=== PATIENT | male | born 1945 | race Caucasian/White ===

== ENCOUNTER 2016-07-23 07:59 | Day surgery (SDC) | payer OTHER ==
[~2016-07-23] VITALS: Ht 190.5 cm; Wt 100.0 kg
[~2016-07-23 07:59] MED LIST: 0.9% Sodium Chloride 1,000 ML IV SCH; ASPI81TA3 PO; CAND32TA2 PO; CHOL200047 PO; HYG25 PO; INSU100I; ISOS20TA4 PO; LISI40TA PO; METO25TA6 PO; NITR0.4T6 SL; OMEP20CA11 PO; PHEN100C11 PO; PSYL283P27 PO; RANI150C4 PO; SENN8.6C6 PO; SIMV10TA4 PO; Sodium Chloride LOK Flush 10 mL Syringe IV PRN; VERA100C5 PO; VITA-230 PO; VITA400C64 PO; fentaNYL-PF 50 mCg/mL 2 mL Inj IVPUSH PRN
[2016-07-23] MEDS ORDERED: Propofol 10,000 mCg/mL 20 mL Inj ONE (08:00)
[2016-07-23] MEDS ORDERED: Ketamine 10 mg/mL 20 mL Inj ONE (08:00)
[2016-07-23 08:25] VITALS: BP 133/67; PULSE 60; RESP 16; O2SAT 99
[2016-07-23] MEDS ORDERED: Lactated Ringer's 1,000 ML IV SCH (10:34)
[2016-07-23] MEDS ORDERED: MetoCLOpramide 5 mg/mL 2 mL Inj IVPUSH PRN (10:35)
[2016-07-23] MEDS ORDERED: Ondansetron 2 mg/mL 2 mL Inj IVPUSH PRN (10:35)
--- NOTE | 2016-07-23 10:42 | PCM.HPANE ---
Patient Data Surgeon Admitting Provider: Attending Provider:Gab Klein MD Primary Care Physician:Clinic,[facility] Other Provider: Reason for Visit Anemia, Dysphagia Ht/WT & BMI Height (Feet): 6 Height (Inches): 3 Weight (Kilograms): 100 Body Mass Index 27.00 Allergies Coded Allergies: Beta-Blockers (Beta-Adrenergic Bloc (Verified Allergy, Mild, 07/22/16) Past Anesthesia History Anesthesia History: Positive for:: Anesthesia Reactions (NAUSEA), Denies:: Abnormal Airway, Difficult Intubation, Fam Anesthesia Reaction, Fam Malignant Hypertherm, Malignant Hyperthermia Diabetes History Hx Diabetes?: Yes (PUMP) Current Bedside Blood Glucose: 142 MRSA MRSA: No Medications Blood Thinner: Aspirin Last Dose Blood Thinner: Jul 23, 2016 Home Meds Incl Beta Marixa: Yes Date Beta Marixa Taken: Jul 23, 2016 Time Beta Marixa Taken: 0600 Reported Medications Vitamin E Mixed (Vitamin E)400 Unit Zlpapvq354 Unit PO DAILY 30 Days 07/22/16 Vitamin A Palmitate (Vitamin A)10,000 Unit Tmbtbme46,000 Unit PO DAILY 30 Days Ref 0 07/22/16 Phenytoin Sodium Extended 100 Mg Ixapagd907 Mg PO TID 07/22/16 Candesartan Cilexetil (Atacand)32 Mg Ocdkes41 Mg PO DAILY 07/22/16 Simvastatin 10 Mg Onxwqh56 Mg PO HS Ref 0 07/22/16 Sennosides (Senna)8.6 Mg Capsule8.6 Mg PO DAILY 01/26/15 Ranitidine 150 Mg Mrfwmvj224 Mg PO DAILY Ref 0 01/26/15 Nitroglycerin SL 0.4 Mg Tab.subl0.4 Mg SL 01/26/15 Isosorbide MN 20 Mg Uzacth47 Mg PO DAILY 01/26/15 Insulin Aspart (NovoLOG U-100 Pen)100 Unit/Ml Insuln.pen 01/26/15 Metoprolol Tartrate 25 Mg Sacpdx15.5 Mg PO BID 30 Days Ref 0 01/26/15 Cholecalciferol (Vitamin D3) (Vitamin D3)2,000 Unit Capsule1,000 Unit PO 01/26/15 Aspirin Chew 81 Mg Tab.chew81 Mg PO AM #1 BOTTLE Ref 0 02/10/14 Lisinopril 40 Mg Syphlg02 Mg PO BID 30 Days Ref 0 02/10/14 Chlorthalidone 25 Mg Afmdoh00 Mg PO DAILY #30 TABLET 02/10/14 Discontinued Reported Medications Verapamil ER (Verelan PM)100 Mg Tbghhre295 Mg PO DAILY 07/22/16 Omeprazole 20 Mg Capsule.dr20 Mg PO DAILY Ref 0 07/22/16 Psyllium Husk/Aspartame (Yvonne-Mucil Powder)283 Gm Cagazt937 Gm PO DAILY 01/26/15 Atorvastatin (Lipitor)40 Mg Dhbnnf90 Mg PO DAILY Ref 0 01/26/15 History History of ENT Problems?: No HEENT History: Positive for:: Dysphagia Hearing Problem Denies:: Abnormal Airway Difficult Intubation Hx of Heart Problems?: Yes Cardiovascular History: Positive for:: Atrial Fibrillation Pacemaker Valvular Heart Disease Denies:: Cardiac Surgery Chest Pain Congestive Heart Failure Edema Heart Murmur Hypertension Irregular Heartbeat Thrombophlebitis Other History/Comments s/p bypass x 7 roughly a year ago, no new symptoms, and ROS negative, and Pacemaker for AV block Hx of Respiratory Problem?: Yes Respiratory History: Denies:: Asthma COPD Cough Hemoptysis Pneumonia Tuberculosis Hx Neurologic Problems?: No Neurological History: Denies:: CVA Hx of GI Problems?: Yes Gastrointestinal History: Positive for:: Gall Bladder Disease Gastroesphageal Reflux Liver Disease (FATTY) Denies:: Cirrhosis Diverticulitis Gastrointestinal Bleeding Heartburn Hepatitis Hiatal Hernia Rectal Bleeding Hx of Problems?: No Male Hx: Denies:: Prostate Problems Scrotal Mass Testicular Surgery Hx Musculoskeletal Problems?: No Musculoskeletal History: Positive for:: Joint Replacement Denies:: Back Injury Fibromyalgia Hx of Psycho/Social Problems?: No Psycho Social History: Denies:: Anxiety Hx Depression Hx Surgeries?: Yes (HIP,TOE, KNEE,SHOULDER,7BYPASS,PACEMAKER,GALLBLADDER) Hx Any Other Health Problems?: No Other History: Positive for:: Hospitalization (gall bladder, toe amputation) Denies:: Cancer Endocrine Disease Thyroid Disease History Blood Transfusions: Denies:: Blood Transfuse Reaction Blood Transfusions Hx Diabetes: Yes (PUMP)Bedside Blood Glucose: 142 Hx Alcohol Use: Yes (OCCAS)Hx Substance Use: No Smoking Status: Never Smoker Have You Smoked inLast 12 mo: No Stop/Bang Treated for Sleep Apnea?: Yes Do You Have a CPAP Machine?: Yes Risk Assessment Category Category 1A: Patient has history of documented sleep apnea, and HAS NOT received any narcotic, sedative or anesthesia administration during this stay. Category 1B: Patient has history of documented sleep apnea, and HAS received any narcotic , sedative or anesthesia administration during this stay Category 2: Patient has SUSPECTED Obstructive Sleep Apnea, and HAS received any narcotic , sedative or anesthesia administration during this stay. Category 3: Patient has SUSPECTED Obstructive Sleep Apnea and HAS NOT received narcotic, sedative or anesthesia administration during this stay. Category 4: Outpatient in Procedural Areas with known sleep apnea or who screen positive for High Risk via the STOP/BANG questionnaire. Additional Information YANA, non-compliant with CPAP machine Exam Exam Vital Signs Vital Signs Date Time Temp Pulse Resp B/P Pulse Ox O2 Delivery O2 Flow Rate FiO2 07/23/16 08:25 60 16 133/67 99 Room Air General Appearance: Alert, Oriented X3, Cooperative HEENT/AIRWAY: MP 2 Lungs: Clear to Auscultation Heart: Exam Unremarkable Meds/Labs/Diagnostics Bedside Blood Glucose: 142 Plan Impression Patient chart reviewed, patient interviewed and anesthestic plan with risks, benefits, and alternatives discussed, and informed consent obtained. ASA Physical Status: ASA3 Severe Disease Anesthetic Plan: TIVA Bene/Risks/Altern/Consents: Yes HP Complete Prior to Induction: Yes Liam Noguera MD Jul 23, 2016 10:42
--- NOTE | 2016-07-23 11:04 | PCM.ENDEGD ---
EGD Date of Service: Jul 23, 2016 Physician Gab Klein MD Pre Procedure Diagnosis: Anemia reflux Post Procedure Dx & Findings: Erosive gastropathy and esophageal varices Procedure Esophagogastroduodenoscopy PROCEDURE IN DETAIL: After proper sedation, Olympus video endoscope was inserted into patient's mouth and esophagus was successfully intubated. Scope introduced esophagus. Esophagus showed normal shiny whitish mucosa consistent with squamous cell component. Z line was intact at 40 cm from the incisors. However there was a hiatal hernia 2 cm. Also seems to be nonobstructive minimal Schatzki's ring. Patient had 2 columns of grade 1 varices without stigmata to midesophagus. Stomach further advanced to the stomach. Stomach showed diffuse gastropathy showing redness edema atrophy and biopsies obtained throughout the stomach. Cardia fundus body antrum pylorus were all visualized. Retroflexion was done. Stomach was easily inflated and deflatable using air. Scope further events to the distal duodenum. Duodenum revealed normal villous structures with normal appearing folds without any mass ulcer erosion. Impression Nonobstructing Schatzki's ring 2 cm hiatal hernia Grade 1 varices 2 columns Diffuse erosive gastropathy status post biopsies Recommendation Patient was here for EGD colonoscopy and workup for anemia. Patient will need to see her generation technologist at the [place]. Patient was asked to follow up with her generation technologist at the [place]. Presedation Assessment Risks and Benefits Informed consent was obtained from the patient after all risks and benefits including but not limited to drug reaction, infection, pain, bleeding, perforation, as well as alternatives were discussed. Patient monitoring Continuous pulse oximetry, cardiac monitoring, blood pressure monitoring, IV access, and oxygen at 2L per nasal cannula. Complications There were no periprocedural complications identified. Post Procedure Plan Post Procedure Recommendations 1. Restrict activities today. 2. Resume normal activities in the morning. 3. Resume medications. 4. GERD behavioral modification: - Avoid fatty, acidic, spicy, large meals - Do not lie down after meals - Do not eat or drink anything for at least 2 1/2 hours before going to bed at night - Discontinue tobacco and alcohol - Decrease or avoid caffeine - Avoid chocolate and mints - Decrease weight - Avoid aspirin and non steroidal anti-inflammatory agents (NSAID) such as Aleve, Advil, Mobic, Naproxen, Ibuprofen, etc 5. Add proton pump inhibitor. Take 30 minutes before 1st meal of the day. 6. Patient informed of normal post procedure side effects as bloating, drowsiness, blood streaking in the stool 7. If gastric biopsy reveal H.pylori, continue with appropriate treatment 8. If small bowel biopsy reveals celiac, continue with appropriate treatment 9. Please don't hesitate to call me with any questions Gab Klein MD Jul 23, 2016 11:04
--- NOTE | 2016-07-23 11:37 | PCM.ENDCOL ---
Colonoscopy Date of Service: Jul 23, 2016 Physician Gab Klein MD Pre Procedure Diagnosis: Anemia Post Procedure Dx & Findings: Polyp hemorrhoids colitis Procedure Colonoscopy PROCEDURE IN DETAIL: Prep adequate Withdrawal time 18 minutes After unremarkable rectal examination the Olympus video colonoscope was inserted patient's anal canal and was advanced to cecum. Landmarks were identified including the ileocecal valve and appendiceal orifice. Scope was withdrawn systematically. Visualized colonic mucosa showed healthy shiny mucosa with normal healthy-appearing vasculature. In the ascending colon there was a 2 mm polyp which was removed completely using cold snare. In the distal rectum, there was evidence of patchy redness and some edema consistent with inflammation biopsies obtained. In the rectum retroflexion was done which showed hemorrhoids. Anal canal was inspected carefully on the way out and hemorrhoids noted. Impression Polyp times 1 status post complete removal Distal colitis? Status post biopsies Hemorrhoids Recommendation Repeat colonoscopy in 5 years Follow up with the [place] physician and obtain referral for hepatology. Avoid All NSAIDs Presedation Assessment Risks and Benefits Informed consent was obtained from the patient after all risks and benefits including but not limited to drug reaction, infection, pain, bleeding, perforation, as well as alternatives were discussed. Patient monitoring Continuous pulse oximetry, cardiac monitoring, blood pressure monitoring, IV access, and oxygen at 2L per nasal cannula. Complications There were no periprocedural complications identified. Post Procedure Plan Post Procedure Recommendations 1. Restrict activities today. 2. Resume normal activities in the morning. 3. Resume medications. 4. Patient informed of normal post procedure side effects as bloating, drowsiness, blood streaking in the stool. 5. average risk CRCS. If colon polyps come back as: -Hyperplastic- can repeat colonoscopy in 10 years -Tubular adenoma- repeat colonoscopy in 5 years -Tubulovillous/villous adenoma- repeat colonoscopy in 3 years -If any dysplasia- return to clinic as soon as possible 6. Please don't hesitate to call me with any questions. Gab Klein MD Jul 23, 2016 11:37
[2016-07-23 11:40] VITALS: BP 111/54; PULSE 68; RESP 16; O2SAT 96
[2016-07-23 12:00] VITALS: BP 122/56; PULSE 60; RESP 16; O2SAT 98
[2016-07-23 12:09] VITALS: BP 121/54; PULSE 60; RESP 16; O2SAT 98
--- NOTE | 2016-07-23 13:16 | PCM.ANEP2 ---
Post Anesthesia Evaluation ASA/CMS Post Anesthesia VS in Patient's Normal Range?: Yes Resp Stable; Airway Patent?: Yes CV Function & Hydration Stable: Yes Mental Status Recovered?: Yes Pain control Satisfactory?: Yes N/V Control Satisfactory?: Yes Liam Noguera MD Jul 23, 2016 13:16
--- NOTE | 2016-07-23 13:16 | PCM.ANEP1 ---
Post Anesthesia Phase 1 PACU Phase 1 Assessment Date of Service: Jul 23, 2016 Vital Signs Vital Signs Date Time Temp Pulse Resp B/P Pulse Ox O2 Delivery O2 Flow Rate FiO2 07/23/16 12:09 60 16 121/54 98 Room Air 07/23/16 12:00 60 16 122/56 98 Room Air 07/23/16 11:40 68 16 111/54 96 Room Air 07/23/16 08:25 60 16 133/67 99 Room Air Anesthetic Administered: GA Level of Alertness: Awake, talking LUNA's with Equal Strength: Yes Pain: No Nausea or Vomiting: No Oxygen Delivery: Room Air Lungs: Clear to Auscultation Dermatome Level: Full Sensation Liam Noguera MD Jul 23, 2016 13:15
--- NOTE | 2016-07-24 11:08 | PATH ---
SURGICAL PATHOLOGY Attending Physician:Gab Klein M.D. CASE STATUS: Signed Out PATIENT NAME: ANABELL IGLESIAS I. PID: [id number] : 1945 DATE COLLECTED:07/23/2016 20:31 SPECIMEN: 1: Gastric, Biopsy 2: Colon, Biopsy 3: Rectum, Biopsy CLINICAL HISTORY: 1). GASTRIC BIOPSY 2). ASCENDING COLON POLYP X1 3). 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 Immunohistochemistry for Helicobacter pending, to be reported by addendum. Positive for intestinal metaplasia. Negative for dysplasia and malignancy. 2.ASCENDING COLON POLYP: BENIGN INFLAMMATORY PSEUDOPOLYP. Negative for dysplasia and malignancy. 3.RECTAL BIOPSY: RECTAL MUCOSA WITH SINGLE FOCUS OF SUPERFICIAL MUCOSAL EROSION, NONSPECIFIC. Negative for dysplasia and malignancy. ICD10 code K29.70 GROSS DESCRIPTION: The specimen is received in three formalin filled containers labeled with the patient's name. 1). The specimen is sublabeled "gastric" and consists of 3 portions of tissue which aggregate to 0.3 x 0.3 x 0.2 CM. The specimen is entirely submitted in cassette 1A. 2). The specimen is sublabeled "ascending colon polyp x1" and consists of a 0.1 x 0.1 x 0.1 CM portion of tissue which is entirely submitted in cassette 2A. 3). The specimen is sublabeled "rectal" and consists of 2 portions of tissue which aggregate to 0.3 x 0.3 x 0.2 CM. The specimen is entirely submitted in cassette 3A. 07/23/2016 [facility] MICRO DESCRIPTION: See diagnosis. ICD-9 CODES: CPT CODES: 1: 80166, 79374 2: 43929 3: 57707 PROCEDURE/ADDENDA: Immunohistochemistry SPI Interpretation {Not Entered} Results-Comments This addendum is to report the results of immunohistochemical stains for Helicobacter pylori on the gastric biopsy specimen. The patient tissue is stained with polyclonal antibody to Helicobacter pylori. The positive control tissue stains appropriately. RESULT: The patient tissue shows no staining. INTERPRETATION: The gastric mucosa is negative for Helicobacter pylori by immunohistochemical stains. This test was developed and its performance characteristics determined by [employer]. It has not been cleared or approved by the [place]. Food and Drug Administration. The FDA has determined that such clearance or approval is not necessary. This test is used for clinical purposes. It should not be regarded as investigational or for research. Electronically Signed Out Neisha Davidson MD Electronically Signed Out Sergio Vo MD [facility] Pathology [facility] [address], [place] [address] Technical component performed at [facility], [address], [place], [address]
== END 2016-07-23 23:59 | disposition home or self-care (01) ==
LOC: END 07:59
PROVIDERS: ATTEND Internal Medicine
DX: K29.50 Unspecified chronic gastritis without bleeding (principal); K21.9 Gastro-esophageal reflux disease without esophagitis; K44.9 Diaphragmatic hernia without obstruction or gangrene; K22.2 Esophageal obstruction; D64.9 Anemia, unspecified; K63.5 Polyp of colon; K64.9 Unspecified hemorrhoids; R13.10 Dysphagia, unspecified; K59.00 Constipation, unspecified; I10 Essential (primary) hypertension; I48.91 Unspecified atrial fibrillation; I38 Endocarditis, valve unspecified; E10.40 Type 1 diabetes mellitus with diabetic neuropathy, unspecified; E78.00 Pure hypercholesterolemia, unspecified; G47.33 Obstructive sleep apnea (adult) (pediatric); M72.0 Palmar fascial fibromatosis [Dupuytren]; Z79.82 Long term (current) use of aspirin; Z95.0 Presence of cardiac pacemaker; Z79.4 Long term (current) use of insulin; Z95.1 Presence of aortocoronary bypass graft
CPT/HCPCS: 43239; 45385; J7030